=== PATIENT | female | born 1950 | race Caucasian/White ===

== ENCOUNTER → 2016-07-29 | Outpatient (CLI) | payer OTHER ==
[~2016-07-29] MED LIST: ALLERGY4 MG PO; AMBIEN 10MG10 MG PO; AMBIEN5 MG PO; AMITRIPTYLINE H25 M1 PO; AMOXICILLIN 8751 TAB PO; ASPIR-LOW81 MG PO; ASPIRIN E.C. 8181 MG PO; BIOTIN1000 MCG PO; CALCIUM CITRATE1 TA1 PO; CARAFATE 1GM1 G PO; CLOBETASOL0.05% TP; DARVOCET N; DIFLUCAN PO; ELAVIL10 MG PO; ESTRACE0.1 MG/GM VG; EYE ITCH RELIEF5 ML OP; FERROUS SULFAT325 MG PO; FLAX SEED OIL1000 MG PO; FLEXERIL 1010 MG/TAB PO; FLUCONASE; FLUCONAZOLE; IBU400 MG PO; IBUPROFEN 200200 MG PO; LEXAPRO 10MG10 MG PO; MIRALAX 17GM PK1 PKT PO; NAPROXEN EC500 MG PO; NAPROXEN ER500 MG PO; NEOMYCIN SULFA500 MG PO; NEOSPORIN OPHTH10 ML OP; NEXIUM40 MG PO; NORCO 325 MG-51 TAB PO; PAPAYA ENZYME; PRIL40; PROBIOTIC FORMU1 CAP PO; REPLENS1 CRE VG; RISPERDAL 1M1 MG/TAB PO; RISPERDAL 2M2 MG/TAB PO; SINGULAIR 110 MG/TAB PO; TOVIAZ4 MG PO; TYLENOL 325MG325 MG PO; TYLENOL 500MG500 MG PO; VITAMIN D50000 I1 PO; VITAMINS; XANAX0.25 MG PO; [UNRECOGNIZED DRUG - OTHER]; [UNRECOGNIZED DRUG - OTHER]; [UNRECOGNIZED DRUG - OTHER]
== END ==
LOC: BHSO 12:53
DX: F25.0 Schizoaffective disorder, bipolar type (principal)

== ENCOUNTER → 2017-01-16 | Outpatient (CLI) | payer BC | LOC: BHSO 13:34 | DX: F25.0 Schizoaffective disorder, bipolar type (principal) ==

== ENCOUNTER → 2017-02-15 | Outpatient (CLI) | payer BC | LOC: MC.RAD 07:40 | DX: Z12.31 Encounter for screening mammogram for malignant neoplasm of breast (principal) ==

== ENCOUNTER → 2017-07-27 | Outpatient (CLI) | payer BC | LOC: BHSO 14:43 | DX: F25.0 Schizoaffective disorder, bipolar type (principal) | CPT/HCPCS: G0463 ==

== ENCOUNTER → 2017-09-28 | Outpatient (CLI) | payer BC | LOC: BHSO 14:35 | DX: F25.0 Schizoaffective disorder, bipolar type (principal) ==

== ENCOUNTER → 2018-03-29 | Outpatient (CLI) | payer BC | LOC: MC.RAD 06:55 | DX: Z12.31 Encounter for screening mammogram for malignant neoplasm of breast (principal); Z98.82 Breast implant status ==

== ENCOUNTER → 2018-04-03 | Outpatient (CLI) | payer BC | LOC: BHSO 16:08 | DX: F20.9 Schizophrenia, unspecified (principal) | CPT/HCPCS: G0463 ==

== ENCOUNTER → 2018-08-27 | Outpatient (CLI) | payer BC | LOC: BHSO 16:28 | DX: F20.9 Schizophrenia, unspecified (principal) | CPT/HCPCS: G0463 ==

== ENCOUNTER → 2019-02-06 | Outpatient (CLI) | payer BC | LOC: BHSO 16:31 | DX: F20.89 Other schizophrenia (principal) | CPT/HCPCS: G0463 ==

== ENCOUNTER → 2019-04-12 | Outpatient (CLI) | payer BC | LOC: MC.RAD 06:56 | DX: Z12.31 Encounter for screening mammogram for malignant neoplasm of breast (principal); N63.20 Unspecified lump in the left breast, unspecified quadrant ==

== ENCOUNTER → 2019-04-16 | Outpatient (CLI) | payer BC | LOC: MC.RAD 13:00 | DX: N60.02 Solitary cyst of left breast (principal) ==

== ENCOUNTER → 2019-05-24 | Outpatient (CLI) | payer BC ==
[2019-05-24 19:44] LABS: BASO % 0.3 % (0.0-2.0); EOS # 0.3 (0.0-0.7); EOS % 2.6 % (0-4.0); GRAN # 6.3 (1.4-6.5); GRAN % 62.5 % (42.2-75.2); HEMATOCRIT 44.4 % (37.0-47.0); HEMOGLOBIN 14.2 g/dl (12.5-16.0); LYMPH # 2.6 (1.2-3.4); LYMPH % 26.3 % (20.0-51.0); MEAN CELL VOLUME 82 fl (80.0-100.0); MEAN CORPUSCULAR HEMOGLOBIN 26 pg (27.0-31.0); MEAN CORPUSCULAR HGB CONC 32 g/dl (33.0-37.0); MONO # 0.8 (0.1-0.6); MONO % 7.9 % (1.7-9.3); PLATELET COUNT 267 K/mm3 (130-400); RED BLOOD COUNT 5.42 M/mm3 (4.10-5.30); REDCELL DISTRIBUTION WIDTH-CV 13.9 % (11.5-14.5)
[2019-05-24 20:01] LABS: ALBUMIN 4.3 gm/dL (3.5-5.0); BILIRUBIN,TOTAL 0.5 mg/dL (0.0-1.0); CALCIUM 9.6 mg/dL (8.4-10.2); CREATININE, serum 0.8 (0.52-1.25); POTASSIUM 3.9 mmol/L (3.4-5.0); TOTAL PROTEIN 6.9 gm/dL (6.4-8.2)
== END ==
LOC: COL.LAB 19:16
DX: R10.811 Right upper quadrant abdominal tenderness (principal)

== ENCOUNTER 2019-06-07 07:31 | Day surgery (SDC) | payer BC ==
[~2019-06-07] VITALS: Ht 163.8 cm; Wt 98.3 kg
[~2019-06-07 07:31] MED LIST changes: -BIOTIN1000 MCG PO; +BIOTIN10000 MC1 PO
[2019-06-07 07:49] VITALS: BP 140/93; PULSE 79; TEMP 97.9
[2019-06-07] MEDS ORDERED: ABILIFY 10MG TA10 MG PO (08:21)
[2019-06-07] MEDS ORDERED: ZYRTEC 10MG10 MG PO (08:23)
[2019-06-07] MEDS ORDERED: TIROSINT50 MC1 PO (08:24)
[2019-06-07] MEDS ORDERED: PRINZIDE 12.5 M1 TA1 PO (08:25)
[2019-06-07] MEDS ORDERED: FLEXERIL 1010 MG/TAB PO (08:26)
[2019-06-07] MEDS ORDERED: ASPIRIN 81M81 MG/TA2 PO (08:27)
[2019-06-07 09:05] VITALS: BP 119/59; PULSE 69; TEMP 98.5
--- NOTE | 2019-06-07 09:05 | NUR ---
Pt to GI bay 2 via cart from ENDO. Pt drowsy, but awakens easily to verbal stimuli. Pt ambulates to recliner with stand by assistance x2. Pt denies pain or nausea. Warm blanket provided. Will continue to monitor. Call light within reach.
[2019-06-07 09:20] VITALS: BP 122/104; PULSE 77
--- NOTE | 2019-06-07 09:20 | NUR ---
Pt dozing on and off. Adamo and sanna given per pt request. Will continue to monitor. Call light within reach.
[2019-06-07 09:35] VITALS: BP 127/70; PULSE 63
--- NOTE | 2019-06-07 09:35 | NUR ---
Pt tolerating PO fluids and food without difficulties. Denies needs. Call light within reach.
[2019-06-07 09:48] VITALS: BP 131/64; PULSE 67
--- NOTE | 2019-06-07 09:48 | NUR ---
Discharge instructions reviewed. Pt voices understanding. IV site discontinued with all parts intact. Pt up to dress. Call light within reach.
--- NOTE | 2019-06-07 10:00 | NUR ---
Pt escorted to private car via wheel chair. Pt accompanied home by her .
== END 2019-06-07 10:00 | disposition home or self-care (01) ==
LOC: SDCO 07:31
DX: K21.9 Gastro-esophageal reflux disease without esophagitis (principal); K29.70 Gastritis, unspecified, without bleeding; Z88.2 Allergy status to sulfonamides; Z88.1 Allergy status to other antibiotic agents; Z91.040 Latex allergy status; Z79.899 Other long term (current) drug therapy; Z79.82 Long term (current) use of aspirin; E07.9 Disorder of thyroid, unspecified
CPT/HCPCS: J2250; J3010; J7030

== ENCOUNTER → 2019-06-14 | Outpatient (CLI) | payer BC ==
[~2019-06-14] MED LIST changes: +ABILIFY 10MG TA10 MG PO; +ASPIRIN 81M81 MG/TA2 PO; +PRINZIDE 12.5 M1 TA1 PO; +TIROSINT50 MC1 PO; +ZYRTEC 10MG10 MG PO
== END ==
LOC: COL.RAD 06:43
DX: R11.0 Nausea (principal); R10.9 Unspecified abdominal pain; R63.0 Anorexia
CPT/HCPCS: A9537; J2805

== ENCOUNTER → 2019-08-06 | Outpatient (CLI) | payer BC | LOC: BHSO 15:56 | DX: F20.9 Schizophrenia, unspecified (principal) | CPT/HCPCS: G0463 ==

== ENCOUNTER → 2020-04-14 | Outpatient (CLI) | payer BC | LOC: MC.RAD 07:38 | DX: Z12.31 Encounter for screening mammogram for malignant neoplasm of breast (principal); Z98.890 Other specified postprocedural states ==

== ENCOUNTER → 2020-06-25 | Outpatient (CLI) | payer BC | LOC: COL.RAD 12:09 | DX: M16.11 Unilateral primary osteoarthritis, right hip (principal) | CPT/HCPCS: J3301; Q9967 ==

== ENCOUNTER → 2021-07-14 | Outpatient (CLI) | payer BC | LOC: MC.RAD 13:15 | DX: Z12.31 Encounter for screening mammogram for malignant neoplasm of breast (principal) ==

== ENCOUNTER 2022-06-21 14:58 | Observation (INO) | payer BC ==
[~2022-06-21] VITALS: Ht 165.1 cm; Wt 88.0 kg
[~2022-06-21 14:58] MED LIST changes: -PRIL40; +PRIL40 PO
[2022-06-21 15:35] LABS: COLLECTION METHOD CLEAN CATCH
[2022-06-21 15:47] LABS: BASO % 0.3 % (0.0-2.0); EOS # 0.3 K/mm3 (0.0-0.7); EOS % 2.6 % (0.0-4.0); GRAN # 7.6 K/mm3 (1.4-6.5); GRAN % 69.5 % (42.2-75.2); HEMATOCRIT 38.8 % (37.0-47.0); HEMOGLOBIN 13.1 g/dl (12.5-16.0); LYMPH # 2.2 K/mm3 (1.2-3.4); LYMPH % 19.9 % (20.0-51.0); MEAN CELL VOLUME 72 fl (80.0-100.0); MEAN CORPUSCULAR HEMOGLOBIN 24 pg (27-31); MEAN CORPUSCULAR HGB CONC 34 g/dl (33.0-37.0); MEAN PLATELET VOLUME 8.9 fl (7.4-10.4); MONO # 0.8 K/mm3 (0.1-0.6); MONO % 7.1 % (1.7-9.3); PLATELET COUNT 310 K/mm3 (130-400); RED BLOOD COUNT 5.39 M/mm3 (4.10-5.30); REDCELL DISTRIBUTION WIDTH-CV 15.9 % (11.5-14.5)
[2022-06-21 15:55] LABS: SQUAMOUS EPITHELIAL 0-2 /hpf (0-10); URINE BACTERIA None Seen /hpf (NONE SEEN)
[2022-06-21 15:56] LABS: PH 5.5 (5.0-8.5); URINE APPEARANCE Clear (CLEAR/HAZY); URINE COLOR Yellow (YELLOW); URINE GLUCOSE 2+ (NEGATIVE)
[2022-06-21 15:57] LABS: URINE BLOOD Negative (NEGATIVE); URINE KETONE Negative (NEGATIVE); URINE NITRATE Negative (NEGATIVE); URINE PROTEIN(semi-quant) Negative (NEGATIVE); URINE UROBILINOGEN 0.2 E.U/dL (0.2-1.0)
[2022-06-21 16:07] LABS: ALANINE AMINOTRANSFERASE 13 U/L (0-55); ALKALINE PHOSPHATASE 101 U/L (40-150); ANION GAP 12 mmol/L (7-16); AST,SGOT 19 U/L (5-34); BILIRUBIN,TOTAL 0.8 mg/dL (0.2-1.2); BLOOD UREA NITROGEN 12 mg/dL (10-20); CALCIUM 9.4 mg/dL (8.4-10.2); CARBON DIOXIDE 21 mmol/L (23-31); CHLORIDE 90 mmol/L (98-107); CREATININE, serum 0.89 mg/dL (0.57-1.11); GLUCOSE 109 mg/dL (70-99); POTASSIUM 3.5 mmol/L (3.5-4.5); SODIUM 123 mmol/L (136-145); TOTAL PROTEIN 7.1 gm/dL (6.2-8.1)
[2022-06-21 16:08] LABS: ALCOHOL(ethanol),MEDICAL < 10 mg/dL (0-10)
[2022-06-21] MEDS ORDERED: COZAAR 50MG50 MG/TAB PO (16:23)
[2022-06-21] MEDS ORDERED: MICROZIDE12.5 MG PO (16:24)
[2022-06-21] MEDS ORDERED: JARDIANCE10 (16:25)
[2022-06-21] MEDS ORDERED: GLUCOPHAGE500 MG/TAB PO (16:26)
[2022-06-21] MEDS ORDERED: PRAVACHOL 20MG20 MG PO (16:26)
[2022-06-21] MEDS ORDERED: ZOLOFT 50MG50 MG PO (16:28)
[2022-06-21] MEDS ORDERED: ATARAX 25MG25 MG/TAB PO (16:28)
[2022-06-21] MEDS ORDERED: DIFLUCAN 100MG100 MG PO (16:29)
[2022-06-21] MEDS ORDERED: ALLEGRA 60MG TA60 MG PO (16:29)
[2022-06-21] MEDS ORDERED: TYLENOL 500MG500 MG PO (17:21)
[2022-06-21 17:22] VITALS: BP 155/53; PULSE 83; TEMP 97.7
--- NOTE | 2022-06-21 17:22 | NUR ---
Pt to room 317, on medical floor. Oriented to room & call light system. Pt is A&Ox4. SAVOONGA; does not wear hearing aids. HR RRR. LCTA. BSx4. INT in L forearm patent, no edema or redness. Rad/ped pulses strong. Pt denies N, ABD cramping, dizziness, GALINDO, etc. Pt given gatorade. No request at this time. Call light within reach. Kamari, spouse, at bedside.
[2022-06-21] MEDS ORDERED: TRELEGY ELLIPT1 EACH IH (17:30)
[2022-06-21 20:19] VITALS: BP 147/55; PULSE 82; TEMP 97.7
--- NOTE | 2022-06-21 22:55 | NUR ---
Pt in [facility] for assessment around 1999. A&Ox4. AK CHIN. Pt denies any pain or discomfort at this time. Gatorade was requested. No needs or concerns were expressed. LFA INT is CDI. Belongings and call light are within reach. Around 2099 medication was administered. Pt is ambulating in the hallway and continued denying pain or discomfort.
[2022-06-21 23:17] VITALS: BP 121/43; PULSE 80; TEMP 97.9
[2022-06-22 00:57] LABS: CALCIUM 9.8 mg/dL (8.4-10.2); CREATININE, serum 0.88 mg/dL (0.57-1.11); POTASSIUM 4.2 mmol/L (3.5-4.5)
[2022-06-22 04:15] VITALS: BP 143/41; PULSE 88; TEMP 98.1
[2022-06-22 07:19] LABS: CALCIUM 9.6 mg/dL (8.4-10.2); CREATININE, serum 0.81 mg/dL (0.57-1.11); MAGNESIUM 1.9 mg/dL (1.6-2.6)
[2022-06-22 08:24] VITALS: BP 120/44; PULSE 86; TEMP 98.5
--- NOTE | 2022-06-22 08:24 | NUR ---
Assessment complete. A/O x4. Denies dizziness, light headedness or chest pain. Reports headache-rating 5/10.
[2022-06-22] MEDS ORDERED: COZAAR 50MG50 MG/TAB PO (08:50)
--- NOTE | 2022-06-22 09:20 | NUR ---
Tylenol administered po for c/o headache.
--- NOTE | 2022-06-22 10:05 | NUR ---
Initial visit; Patient and Chaplan said prayer together standing in front of her large window with a view. Patient thanked [employer] Instructor for visit.
--- NOTE | 2022-06-22 10:16 | NUR ---
SW met with pt for intake. Pt reports living in [facility] with Kamari who is identified as NOK. Pt confirmed Kamari's contact number as [phone]. Pt reports person listed to contact in chart is incorrect and should read Kamari Encinsa. Pt reports being independent at home and having about 12 stairs which do not present as an issue. Pt denied DME and/or oxygen at home. Pt reports PCP as Dr. Barron and pharmacy as [facility]. Pt denies having any issues. Pt has DPOA and confirmed Kamari Encinas as designee. Pt identifies no needs. Discharge Plan Home with Kamari
--- NOTE | 2022-06-22 12:00 | NUR ---
Discharge instructions reviewed with patient- verbalizes understanding. INT to d/c'd with cath intact. Pt escorted to private vehicle via w/c and discharged home with spouse.
== END 2022-06-22 12:00 | disposition home or self-care (01) ==
LOC: COL.ER 14:58 → MEDICAL 16:40
PROVIDERS: Physician Assistant; ADMIT Internal Medicine
DX: E87.1 Hypo-osmolality and hyponatremia (principal); R82.81 Pyuria; I10 Essential (primary) hypertension; E11.9 Type 2 diabetes mellitus without complications; B37.81 Candidal esophagitis; E78.5 Hyperlipidemia, unspecified; E03.9 Hypothyroidism, unspecified; J44.9 Chronic obstructive pulmonary disease, unspecified; F32.A Depression, unspecified; Z79.890 Hormone replacement therapy; Z86.73 Personal history of transient ischemic attack (TIA), and cerebral infarction without residual deficits; Z79.82 Long term (current) use of aspirin; Z79.899 Other long term (current) drug therapy; Z79.84 Long term (current) use of oral hypoglycemic drugs
CPT/HCPCS: G0378; J0696; J1815

== ENCOUNTER 2023-01-06 12:53 | Emergency (ER) | payer BC ==
[~2023-01-06] VITALS: Ht 162.6 cm; Wt 81.4 kg
[~2023-01-06 12:53] MED LIST changes: +ALLEGRA 60MG TA60 MG PO; +AMITRIPTYLINE H10 M1 PO; +AMOXICILLIN 50500 MG PO; +ANTI-GAS ULTRA180 MG PO; +ATARAX 25MG25 MG/TAB PO; +BENADRYL ALLERG25 M2 PO; +COZAAR 50MG50 MG/TAB PO; +DIFLUCAN150 MG PO; +GLUCOPHAGE500 MG/TAB PO; +JARDIANCE10; +MICROZIDE12.5 MG PO; +PRAVACHOL 20MG20 MG PO; +RICOLA HERB TH1 EACH MM; +TESSALON PERLE200 MG PO; +TRELEGY ELLIPT1 EACH IH; +TRIAM OI 0.1 454 TOP; +ZOLOFT 50MG50 MG PO; +[UNRECOGNIZED DRUG - OTHER] TP
[2023-01-06 13:22] VITALS: TEMP 97.9
[2023-01-06] MEDS ORDERED: NORCO 325 MG-51 TAB PO (14:35)
[2023-01-06 14:50] VITALS: BP 152/64; PULSE 93
== END 2023-01-06 14:50 | disposition home or self-care (01) ==
LOC: COL.ER 12:53
DX: M25.571 Pain in right ankle and joints of right foot (principal); M25.551 Pain in right hip; M25.561 Pain in right knee; Z96.641 Presence of right artificial hip joint; Z91.040 Latex allergy status; W18.30XA Fall on same level, unspecified, initial encounter

== ENCOUNTER → 2023-06-13 | Outpatient (CLI) | payer BC | LOC: COL.VAS 12:39 | DX: I51.7 Cardiomegaly (principal) ==

== ENCOUNTER 2023-08-24 17:39 | Emergency (ER) | payer BC ==
[~2023-08-24] VITALS: Ht 162.6 cm; Wt 86.4 kg
[2023-08-24 17:48] VITALS: TEMP 97.7
[2023-08-24] MEDS ORDERED: Ondansetron 4 MG/2 ML VIAL IV ONE (19:15)
[2023-08-24] MEDS ORDERED: Morphine 4 MG/ML VIAL IV ONE ×2 (19:15→23:45)
[2023-08-24 19:59] LABS: COLLECTION METHOD CLEAN CATCH
[2023-08-24 20:10] LABS: URINE APPEARANCE CLOUDY (CLEAR/HAZY); URINE BLOOD 2+ (NEGATIVE); URINE COLOR YELLOW (YELLOW); URINE GLUCOSE NEGATIVE (NEGATIVE); URINE KETONE NEGATIVE (NEGATIVE); URINE NITRATE NEGATIVE (NEGATIVE); URINE PROTEIN(semi-quant) NEGATIVE (NEGATIVE); URINE UROBILINOGEN 0.2 E.U/dL (0.2-1.0)
[2023-08-24 20:42] LABS: BASO % 0.2 % (0.0-2.0); EOS # 0.2 K/mm3 (0.0-0.7); EOS % 2.3 % (0.0-4.0); GRAN # 6.5 K/mm3 (1.4-6.5); GRAN % 70.3 % (42.2-75.2); HEMOGLOBIN 11.5 g/dl (12.5-16.0); LYMPH # 1.6 K/mm3 (1.2-3.4); LYMPH % 17.2 % (20.0-51.0); MEAN CELL VOLUME 77 fl (80.0-100.0); MEAN CORPUSCULAR HEMOGLOBIN 26 pg (27-31); MEAN CORPUSCULAR HGB CONC 33 g/dl (33.0-37.0); MEAN PLATELET VOLUME 9.5 fl (7.4-10.4); MONO # 0.9 K/mm3 (0.1-0.6); MONO % 9.5 % (1.7-9.3); PLATELET COUNT 259 K/mm3 (130-400); RED BLOOD COUNT 4.47 M/mm3 (4.10-5.30); REDCELL DISTRIBUTION WIDTH-CV 14.2 % (11.5-14.5)
[2023-08-24 20:50] LABS: HEMATOCRIT 34.6 % (37.0-47.0)
[2023-08-24 21:04] LABS: ALBUMIN 3.8 g/dL (3.4-4.8); BILIRUBIN,TOTAL 0.9 mg/dL (0.2-1.2); C-REACTIVE PROTEIN 2.91 mg/dL (0.00-0.50); CALCIUM 9.8 mg/dL (8.4-10.2); CREATININE, serum 0.85 mg/dL (0.57-1.11); POTASSIUM 3.3 mEq/L (3.5-4.5); TOTAL PROTEIN 6.2 g/dl (6.2-8.1)
[2023-08-24] MEDS ORDERED: Iohexol 300 - 100 ML VIAL IV ONE (23:13)
[2023-08-24] MEDS ORDERED: NS 60 ML IV ONE (23:14)
[2023-08-25] MEDS ORDERED: cefTRIAXone 1 G in Water For Injection,Sterile 10 ML IV ONE (01:00)
[2023-08-25] MEDS ORDERED: CEFTIN 250250 MG/TAB PO (01:14)
[2023-08-25 01:24] VITALS: BP 149/78; PULSE 85
== END 2023-08-25 01:24 | disposition home or self-care (01) ==
LOC: COL.ER 17:39
PROVIDERS: Nurse Practitioner
DX: N39.0 Urinary tract infection, site not specified (principal); Z88.2 Allergy status to sulfonamides; Z91.040 Latex allergy status
CPT/HCPCS: J0696; J2270; J2405; Q9967